=== PATIENT | male | born 1965 | race African-American/Black ===

== ENCOUNTER 2017-02-07 10:45 | Emergency (ER) | payer BC ==
[~2017-02-07] VITALS: Ht 172.7 cm; Wt 89.8 kg
--- NOTE | ~2017-02-07 | EKG ---
PATIENT: PRINCE MAGUIRE UNIT #: [id number] Ventricular Rate: 70 BPM Atrial Rate: 70 BPM P-R Interval: 156 ms QRS Duration: 84 ms Q-T Interval: 382 ms QTC Calculation(Bezet): 412 ms P [place]: 58 degrees Calculated R [place]: 19 degrees Calculated T [place]: 4 degrees Diagnosis Line: Normal sinus rhythm Diagnosis Line: Nonspecific T wave abnormality Diagnosis Line: Otherwise normal ECG Diagnosis Line: No previous ECGs available Diagnosis Line: Confirmed by ADELSO BOYLE MD ([id number]) on 02/07/2017 Diagnosis Line: 2:07:48 PM INTERPRETING MD: TAMAR KNIGHT
--- NOTE | ~2017-02-07 | CR72 ---
[facility] A Service of [facility] RADIOLOGY TEXT RESULTS PATIENT: PRINCE MAGUIRE LOCATION: [facility] : 67 UNIT #: [id number] AGE: [address]: Rodney Graves MD SEX: M ORDER DR: [id number] [facility] [address] [place], [place] [address] [id number] MR#: [id number] Acc #: [id number] NAME: PRINCE MAGUIRE : 1965 SEX: M STUDY DATE/TIME: 02/07/2017 11:31 UNIT: [facility] ROOM: STUDY DESCRIPTION: CR Chest Single View Portable Attending Physician: Rodney Graves M.D. Ordering Physician: Rodney Graves M.D. Primary Care Physician: Primary Care Physician No MEDICAL IMAGING REPORT This report is preliminary unless electronic signature is present EXAM Portable chest 02/07/2017 HISTORY Dizziness today. Benign essential hypertension. FINDINGS A single AP portable view of the chest shows both lungs to be clear. The heart is normal in size. The mediastinal contour is normal. No significant bone abnormalities are seen. IMPRESSION Normal portable chest. Dictated by... Claudy Gaffney M.D. THIS IS AN ELECTRONICALLY VERIFIED REPORT Claudy Gaffney M.D. at 02/08/2017 10:35 AM PAWEL/alexsander TD: 02/07/2017 12:12 JOB #: [id number] MEDICAL IMAGING REPORT Page 1 of 1 COPY
[2017-02-07 11:31] LABS: BASOPHIL% 0.7 % (0-2.5); EOSINOPHIL% 0.3 % (0.0-7.0); HEMATOCRIT 43.1 % (38.0-50.0); HEMOGLOBIN 14.5 gm/dL (13.0-16.0); LYMPHOCYTE# 1.4 X10e3 (1.0-3.5); LYMPHOCYTE% 27.6 % (17.0-45.0); MEAN CELL VOLUME 91.8 FL (83-96); MEAN CORPUSCULAR HGB CONC 33.8 g/dL (30-36); MEAN PLATELET VOLUME 7.3 FL (6.5-11.5); MONOCYTE# 0.3 X10e3 (0-1.0); MONOCYTE% 5.8 % (3.0-12.0); NEUTROPHIL# 3.4 X10e3 (1.5-7.1); NEUTROPHIL% 65.6 % (40-75); PLATELET COUNT 220 X10e3 (140-420); RED BLOOD COUNT 4.69 X10e (3.90-5.60); WHITE BLOOD COUNT 5.1 X10e3 (4.0-10.5)
[2017-02-07 11:32] LABS: DIFF IND NO
[2017-02-07 11:52] LABS: POC - CKMB 1.2 ng/mL (0.0-7.9); POC - TROPONIN <0.05 ng/mL (<=0.05)
[2017-02-07 11:55] LABS: ALBUMIN SERUM 4.4 g/dL (3.5-5.0); BILIRUBIN, DIRECT 0.2 mg/dL (0.0-0.2); BILIRUBIN,INDIRECT 1.2 mg/dL (0.0-0.9); BILIRUBIN,TOTAL 1.4 mg/dL (0.2-2.0); BUN/CREATININE RATIO 11.53; CALCIUM SERUM 9.4 mg/dL (8.4-10.2); CREATININE SERUM 1.3 mg/dL (0.6-1.4); GLOM FILT RATE Estimated 73.8 mL/min (>60); POTASSIUM 3.8 mmol/L (3.5-5.1); PROTEIN TOTAL SERUM 7.8 g/dL (6.0-8.3)
== END 2017-02-07 13:11 | disposition home or self-care (01) ==
LOC: CED 10:45
PROVIDERS: Emergency Medicine
DX: I80.8 Phlebitis and thrombophlebitis of other sites (principal); Z88.8 Allergy status to other drugs, medicaments and biological substances
CPT/HCPCS: 36415; 71010; 80048; 80076; 82553; 83880; 84484; 85025; 93005; 99284